=== PATIENT | female | born 1980 | race Caucasian/White ===

== ENCOUNTER 2017-03-14 16:37 | Emergency (ER) | payer OTHER ==
[2017-03-14 20:57] LABS: HEMOGLOBIN 11.7 gm/dl (12.3-15.3); RED BLOOD COUNT 4.98 M/UL (4.00-5.10); WHITE BLOOD COUNT 12.6 K/UL (4.5-11.0)
[2017-03-14 21:13] LABS: BUN/CREATININE RATIO 13 (0-10)
== END 2017-03-15 02:38 | disposition short-term general hospital (02) ==
LOC: ER1 16:37
PROVIDERS: Emergency Medicine
DX: K85.91 Acute pancreatitis with uninfected necrosis, unspecified (principal); I10 Essential (primary) hypertension; M06.9 Rheumatoid arthritis, unspecified; J44.9 Chronic obstructive pulmonary disease, unspecified; F17.200 Nicotine dependence, unspecified, uncomplicated; Z88.5 Allergy status to narcotic agent
CPT/HCPCS: 36415; 80053; 81001; 82150; 83605; 83690; 84703; 85025; 87040; 93005; 96361; 96374; 96375; 99285; J2405; J7030